=== PATIENT | female | born 1985 | race Hispanic/Latino ===

== ENCOUNTER 2017-06-12 09:22 | Emergency (ER) | payer OTHER ==
[2017-06-12 09:37] VITALS: O2SAT 97; BMI 22.9
--- NOTE | 2017-06-12 10:00 | ED PDOC ---
HPI: Female Pain Time Seen by Provider: 06/12/17 09:45 Chief Complaint (Nursing): Female Genitourinary Chief Complaint (Provider): Female Genitourinary History Per: Patient History/Exam Limitations: no limitations Onset/Duration Of Symptoms: Days (x2 days) Current Symptoms Are (Timing): Still Present Severity: Moderate Quality Of Discomfort: Other (NONE) Alleviating Factors: None Additional Complaint(s): 32 y/o female () presents to the ED complaining of vaginal bleeding since yesterday. Reports she used total of 2 pads yesterday and one today. Patient reports that the volume has increased today. Patient was seen by her [employer] few days ago which was her first pre-cabrera visit and she is here today for further evaluation. Last normal menstrual period was on 04/14/2017. Denies fever, chills , sweats, chest pain, palpitations, shortness of breath, abdominal pain, cramps , nausea, vomiting, urinary problems, or any further medical complaints. pt denied dizziness/lightheadedness, no LOC pt denied fall/trauma/sick contact, no travel. pt is here for further eval. [employer]: Dr.Smita Odom Abnormal Vaginal Bleeding: Yes Last Menstral Period: 04/14 : 2 Para: 0 Miscarriage: 1 Past Medical History Reviewed: Historical Data, Nursing Documentation, Vital Signs Vital Signs: Last Vital Signs Temp 97.5 F L 06/12/17 09:36 Pulse 98 H 06/12/17 09:36 Resp 16 06/12/17 09:36 BP 110/74 06/12/17 09:36 Pulse Ox 97 06/12/17 09:36 - Medical History PMH: No Chronic Diseases - Surgical History Surgical History: No Surg Hx - Family History Family History: States: Unknown Family Hx - Living Arrangements Living Arrangements: With Family - Social History Current smoker - smoking cessation education provided: No Alcohol: None Drugs: Denies - Allergies Allergies/Adverse Reactions: Allergies Allergy/AdvReac Type Severity Reaction Status Date / Time No Known Allergies Allergy Verified 06/12/17 09:31 Review of Systems ROS Statement: Except As Marked, All Systems Reviewed And Found Negative (As per HPI, otherwise negative) Constitutional: Negative for: Fever, Chills, Sweats Cardiovascular: Negative for: Chest Pain, Palpitations Respiratory: Negative for: Shortness of Breath Gastrointestinal: Negative for: Nausea, Vomiting, Abdominal Pain (or cramps) Genitourinary Female: Positive for: Vaginal Bleeding Skin: Negative for: Rash Neurological: Negative for: Weakness, Altered Mental Status, Headache Physical Exam - Reviewed Nursing Documentation Reviewed: Yes Vital Signs Reviewed: Yes (WNL) - Physical Exam Appears: Positive for: Well (alert/awake, GCS = 15, oriented x 3, NAD, resting in bed, mildly uncomfortable, cooperative), Non-toxic, No Acute Distress, Uncomfortable Head Exam: Positive for: ATRAUMATIC, NORMAL INSPECTION, NORMOCEPHALIC Skin: Positive for: Normal Color (cap refill < 1sec, no ulcerations, no petechiae, no rashes/lesions, no pallor), Warm, Dry Eye Exam: Positive for: Normal appearance (wearing eye-glasses), EOMI, PERRL ENT: Positive for: Normal ENT Inspection Neck: Positive for: Normal, Painless ROM, Supple, Trachea Midline Cardiovascular/Chest: Positive for: Regular Rate, Rhythm, Chest Non Tender, Other (+S1, +S2). Negative for: Murmur Respiratory: Positive for: Normal Breath Sounds, Other (CTA b/l, no w/r/r, no accessory muscle use noted, no tachypenia) Gastrointestinal/Abdominal: Positive for: Normal Exam, Soft, Other (well nourished female, no focal tenderness, no auguste's sign, no mcburney's point tenderness, no masses/rebound/guarding/rigidity) Pelvic Exam: Positive for: External Exam Normal, No Cerv. Motion Tender, Blood, Other (slightly open cervix, no active bleeding coming from the cervix, noted bleeding in the vag vault; no lesions/masses/ulcerations/FB noted; no discharge , no tenderness noted on exam) Back: Positive for: Normal Inspection. Negative for: L CVA Tenderness, R CVA Tenderness Extremity: Positive for: Normal ROM, Other (+ ambulatory) Neurologic/Psych: Positive for: Alert, tie maker II-XII, Oriented - Laboratory Results Result Diagrams: 06/12/17 10:16 06/12/17 10:16 Urine POC: Positive - ECG O2 Sat by Pulse Oximetry: 97 (RA) Pulse Ox Interpretation: Normal - Progress ED Course And Treament: 10:30am - pt is comfortable currently pt is not in any distress pt is awaiting U/S results 11:20am - pt blood type = O+ 11:59am Spoke to Dr. Odom and made aware of preliminary ED results and US results Agrees with ED treatment and management Recommended follow up with her in the coming week DR. Odom requested for ED labs to be taken to her office Patient's recent beta quantitative is 87,800 PROCEDURE: Pelvic ultrasound HISTORY: Vaginal bleeding. COMPARISON: No prior study available comparison. FINDINGS: UTERUS: Apparent bicornuate uterus which is clear anteverted measuring approximately 10.4 x 10.0 x 6.6 cm. Reveals a single living intrauterine gestation with measurements as follows: Gestational sac: MSD = 3.1 cm = 8 weeks 0 days Yolk sac: 4.3 mm. pole: CRL = 1.57 cm = 8 weeks 0 days Heart rate: 168 BPM . age (Ultrasound estimated): 8 weeks 0 days 0 weeks 4 days Tg-gestational hemorrhage: Small subchorionic hemorrhage measuring approximately 2.78 x 2.72 x 2.74 cm. Date of delivery (Ultrasound estimated) : 18 RIGHT OVARY: Right ovary measures 2.1 x 1.9 x 0.96 cm. No mass lesion. Normal flow. LEFT OVARY: Left ovary measures approximately 3.1 x 2.5 x 2.0 cm with small cyst measuring 1.6 cm x 1.4 x 1.1 cm .. No solid mass. Normal flow. FREE FLUID: No gross free fluid seen in the cul sac OTHER FINDINGS: None. IMPRESSION: Apparent bicornuate uterus. Single living intrauterine gestation estimated at approximately 8 weeks 0 days 4 days. Heart rate documented at 168 BPM. There is a small subchorionic hemorrhage as outlined above. Findings discussed with Dr. Cheatham at approximately 12:20 p.m. with written down and read back verification. Follow-up OB ultrasound should be performed to assess for resolution of small subchorionic hemorrhage. vital signs are stable 12:20pm - pt remained comfortable pt is not in any distress pt/family are made aware of pt's medical results pt is encouraged rest, no heavy lifting/weight bearing pt is encouraged fluids pt will f/u as directed pt will be discharged home Re-evaluation Time: 10:30 Condition: Unchanged, Improved Medical Decision Making Medical Decision Making: Time: 09:51 Initial Impression: Vaginal bleeding, + preg; threaten ab? i have consider all the differential diagnosis regarding pt's chief medical complaints/clinical findings, including but are not limited to: vaginal bleeding , r/o threaten ab, r/o uti Plan: Type and screen BMP Beta-HCG Dipstick test CBC w/ differential IV insertion Urinalysis US OB transvaginal supportive care observe/Reevaluation Scribe Attestation: Documented by Magda Aldridge acting as a scribe Kalpesh Cheatham MD. Scribe Attestation: All medical record entries made by the Scribe were at my direction and personally dictated by me. I have reviewed the chart and agree that the record accurately reflects my personal performance of the history, physical exam, medical decision making, and the department course for this patient. I have also personally directed, reviewed, and agree with the discharge instructions and disposition. Disposition - Clinical Impression Clinical Impression: Vaginal bleeding during , Threatened in first trimester, Subchorionic hemorrhage in first trimester - Patient ED Disposition Is Patient to be Admitted: No Discussed With : pt's OB Doctor Will See Patient In The: Office Counseled Patient/Family Regarding: Studies Performed, Diagnosis, Need For Followup - Disposition Referrals: PCP,NO [Non-Staff] - Disposition: Routine/Home Disposition Time: 12:20 Condition: STABLE Additional Instructions: Make sure to see your doctor in 1-2 days make sure to see your OB doctor as directed this coming week DRINK PLENTY OF FLUIDS take your medications as prescribed NO sex NO heavy lifting NO prolonged walking bed rest is encouraged RETURN TO ED IF worse pain, cant breath, persistent vomiting, high fever >101- 102 for hours, altered behavior, slurr speech, facial changes, focal weakness ( arm/leg or both), unable to urinate, heavy/persistent bleeding, passing out, chest pain, or other medical emergencies Instructions: Threatened Miscarriage, Bleeding With Forms: [facility] (Marshallese) Print Language: POLISH
[2017-06-12 10:21] LABS: BASO % 0.3 % (0.0-2.0); EOS # 0.1 K/uL (0.0-0.7); EOS % 1.1 % (0.0-4.0); HEMOGLOBIN 14.6 g/dL (12.0-16.0); LYMPH # 1.5 K/uL (1.0-4.3); LYMPH % 17.8 % (20.0-40.0); MEAN CELL VOLUME 91.8 fl (81.0-99.0); MEAN CORPUSCULAR HEMOGLOBIN 31.5 pg (27.0-31.0); MEAN CORPUSCULAR HGB CONC 34.4 g/dL (33.0-37.0); MEAN PLATELET VOLUME 7.6 fl (7.2-11.7); MONO # 0.7 K/uL (0.0-0.8); MONO % 8.7 % (0.0-10.0); NEUT # 5.9 K/uL (1.8-7.0); NEUT % 72.1 % (50.0-75.0); NRBC % 0.1 % (0.0-0.0); RBC 4.64 Mil/uL (3.80-5.20); RED CELL DISTRIBUTION WIDTH 12.8 % (11.5-14.5); WHITE BLOOD COUNT 8.2 K/uL (4.8-10.8)
[2017-06-12 10:30] LABS: BLOOD UREA NITROGEN 13 mg/dl (7-17); CALCIUM 9.5 mg/dL (8.4-10.2); GFR AFRICAN-AMERICAN > 60; GFR NON-AFRICAN AMERICAN > 60
[2017-06-12 10:44] LABS: SQUAMOUS EPITHIAL 10 /hpf (0-5); URINE BACTERIA RARE (<OCC); URINE BILIRUBIN NEGATIVE (NEGATIVE); URINE BLOOD LARGE (NEGATIVE); URINE CLARITY CLOUDY (Clear); URINE COLOR YELLOW (YELLOW); URINE GLUCOSE (UA) NEG (Normal); URINE LEUKOCYTE ESTERASE NEG Leu/uL (Negative); URINE PROTEIN 30 mg/dL (NEGATIVE); URINE UROBILINOGEN 0.2-1.0 mg/dL (0.2-1.0)
[2017-06-12 12:27] VITALS: BP 121/79; PULSE 79; RESP 14; TEMP 98
--- NOTE | 2017-06-12 12:30 | US ---
PROCEDURE: Pelvic ultrasound HISTORY: Vaginal bleeding. COMPARISON: No prior study available comparison. FINDINGS: UTERUS: Apparent bicornuate uterus which is clear anteverted measuring approximately 10.4 x 10.0 x 6.6 cm. Reveals a single living intrauterine gestation with measurements as follows: Gestational sac: MSD = 3.1 cm = 8 weeks 0 days Yolk sac: 4.3 mm. pole: CRL = 1.57 cm = 8 weeks 0 days Heart rate: 168 BPM . age (Ultrasound estimated): 8 weeks 0 days 0 weeks 4 days Tg-gestational hemorrhage: Small subchorionic hemorrhage measuring approximately 2.78 x 2.72 x 2.74 cm. Date of delivery (Ultrasound estimated) : 18 RIGHT OVARY: Right ovary measures 2.1 x 1.9 x 0.96 cm. No mass lesion. Normal flow. LEFT OVARY: Left ovary measures approximately 3.1 x 2.5 x 2.0 cm with small cyst measuring 1.6 cm x 1.4 x 1.1 cm .. No solid mass. Normal flow. FREE FLUID: No gross free fluid seen in the cul sac OTHER FINDINGS: None. IMPRESSION: Apparent bicornuate uterus. Single living intrauterine gestation estimated at approximately 8 weeks 0 days 4 days. Heart rate documented at 168 BPM. There is a small subchorionic hemorrhage as outlined above. Findings discussed with Dr. Cheatham at approximately 12:20 p.m. with written down and read back verification. Follow-up OB ultrasound should be performed to assess for resolution of small subchorionic hemorrhage.
== END 2017-06-12 12:45 | disposition home or self-care (01) ==
LOC: H.ER 09:22
DX: O20.0 Threatened abortion (principal)